=== PATIENT | female | born 1945 | race Caucasian/White ===

== ENCOUNTER → 2023-08-21 08:16 | Outpatient (REF) | payer MEDICARE, OTHER, SELFPAY | LOC: RAD 08:16 | PROVIDERS: ATTENDING PHYSICIAN Physician Assistant; FAMILY PHYSICIAN Student in an Organized Health Care Education/Training Program | DX: E04.1 Nontoxic single thyroid nodule (principal) | CPT/HCPCS: 76536 ==

== ENCOUNTER → 2023-08-28 08:22 | Outpatient (REF) | payer MEDICARE, OTHER, SELFPAY ==
[2023-08-28 10:09] LABS: ALT (SGPT) 15 U/L (0-35); AST (SGOT) 26 U/L (14-36); Albumin 4.6 g/dl (3.5-5.0); Alkaline Phosphatase 72 U/L (38-126); Blood Urea Nitrogen 22 mg/dl (7-17); Calcium 9.4 mg/dl (8.4-10.2); Carbon Dioxide 28 mmol/L (22-30); Chloride 104 mmol/L (98-107); Glucose 94 mg/dl (70-99); Potassium 4.3 mmol/L (3.5-5.1); Sodium 141 mmol/L (135-145); Total Bilirubin 0.5 mg/dl (0.2-1.3); Total Protein 7.7 g/dl (6.3-8.2); eGFR > 60.00
[2023-08-28 10:26] LABS: Free T4 1.24 ng/dl (0.78-2.19); Vitamin D, 25-OH*** 44.9 ng/mL (30-80)
[2023-08-28 10:39] LABS: TSH 3.94 uIU/ml (0.47-4.68)
[2023-08-29 13:21] LABS: Intact PTH 95.9 pg/ml (13.6-85.8)
== END ==
LOC: REG 08:22
PROVIDERS: ATTENDING PHYSICIAN Physician Assistant; FAMILY PHYSICIAN Student in an Organized Health Care Education/Training Program
DX: E21.0 Primary hyperparathyroidism (principal); E55.9 Vitamin D deficiency, unspecified; E03.8 Other specified hypothyroidism
CPT/HCPCS: 36415; 80053; 82306; 83970; 84439; 84443

== ENCOUNTER → 2024-02-08 08:33 | Outpatient (REF) | payer MEDICARE, OTHER, SELFPAY | LOC: WDC 08:33 | PROVIDERS: ATTENDING PHYSICIAN Obstetrics & Gynecology Gynecology; FAMILY PHYSICIAN Student in an Organized Health Care Education/Training Program | DX: Z12.31 Encounter for screening mammogram for malignant neoplasm of breast (principal) | CPT/HCPCS: 77063; 77067 ==

== ENCOUNTER → 2024-05-28 10:06 | Outpatient (REF) | payer MEDICARE, OTHER, SELFPAY ==
[2024-05-28 11:18] LABS: % Basophils 1.1 % (0-2); % Eosinophils 2.5 % (0-6); % Immature Granulocytes 0.3 % (0-0.5); % Lymphocytes 28.6 % (20.5-51.1); % Monocytes 9.2 % (1.7-9.3); % Neutrophils 58.3 % (42.2-75.2); Absolute Basophils 0.1 10^3/uL (0-0.2); Absolute Eosinophils 0.2 10^3/uL (0-0.7); Absolute Lymphocytes 2.1 10^3/uL (1.2-3.4); Absolute Monocytes 0.7 10^3/uL (0.1-0.6); Absolute Neutrophils 4.2 10^3/uL (1.4-6.5); Hematocrit 40.2 % (37.0-47.0); Hemoglobin 13.3 g/dL (12.0-16.0); Mean Corp Hgb Conc. 33.1 g/dL (33.0-37.0); Mean Corpuscular Hgb 30.9 pg (27.0-31.0); Mean Corpuscular Volume 93.3 fL (81.0-99.0); Mean Platelet Volume 9.3 fL (7.4-10.4); Nucleated Red Blood Cells % 0 %; Platelet Count 179 10^3/uL (130-400); Red Blood Cell Count 4.31 10^6/uL (4.20-5.40); Red Cell Dist. Width 12.5 % (11.5-14.5); White Blood Cell Count 7.3 10^3/uL (4.8-10.8)
[2024-05-28 12:26] LABS: ALT (SGPT) 19 U/L (0-35); AST (SGOT) 27 U/L (14-36); Albumin 4.6 g/dl (3.5-5.0); Alkaline Phosphatase 78 U/L (38-126); Blood Urea Nitrogen 22 mg/dl (7-17); Calcium 9.4 mg/dl (8.4-10.2); Carbon Dioxide 29 mmol/L (22-30); Chloride 100 mmol/L (98-107); Glucose 121 mg/dl (70-99); Potassium 4.1 mmol/L (3.5-5.1); Sodium 140 mmol/L (135-145); Total Bilirubin 0.5 mg/dl (0.2-1.3); Total Protein 7.4 g/dl (6.3-8.2); eGFR > 60.00
[2024-05-28 15:54] LABS: Syphilis/T. pallidum Ab Reflex Negative (Negative)
[2024-05-28 16:37] LABS: Free T3 3.78 pg/ml (2.77-5.27); Free T4 1.44 ng/dl (0.78-2.19)
[2024-05-28 16:51] LABS: TSH 2.57 uIU/ml (0.47-4.68)
[2024-05-28 17:10] LABS: Vitamin B12 371 pg/ml (239-931)
[2024-05-29 19:33] LABS: TSH Receptor Antibody 2.44 IU/L (<=1.75)
== END ==
LOC: REG 10:06
PROVIDERS: ATTENDING PHYSICIAN Student in an Organized Health Care Education/Training Program
DX: R41.3 Other amnesia (principal); R63.5 Abnormal weight gain; R68.89 Other general symptoms and signs; L65.9 Nonscarring hair loss, unspecified
CPT/HCPCS: 36415; 80053; 82607; 83520; 84439; 84443; 84481; 85025; 86780

== ENCOUNTER → 2024-06-24 12:55 | Outpatient (REF) | payer MEDICARE, OTHER, SELFPAY | LOC: PAVMRI 12:55 | PROVIDERS: ATTENDING PHYSICIAN Student in an Organized Health Care Education/Training Program | DX: R41.3 Other amnesia (principal); R63.5 Abnormal weight gain; R68.89 Other general symptoms and signs; L65.9 Nonscarring hair loss, unspecified | CPT/HCPCS: 70553; A9575 ==

== ENCOUNTER → 2024-07-16 16:33 | Outpatient (REF) | payer MEDICARE, OTHER, SELFPAY | LOC: MRI 3T 16:33 | PROVIDERS: ATTENDING PHYSICIAN Student in an Organized Health Care Education/Training Program | DX: R93.0 Abnormal findings on diagnostic imaging of skull and head, not elsewhere classified (principal); R90.89 Other abnormal findings on diagnostic imaging of central nervous system | CPT/HCPCS: 70546; 70549; A9585 ==

== ENCOUNTER 2024-08-05 13:00 | Outpatient (RCR) | payer MEDICARE, OTHER, SELFPAY | END 2024-08-05 23:59 | disposition home or self-care (01) | LOC: RPT 13:00 | PROVIDERS: ATTENDING PHYSICIAN Student in an Organized Health Care Education/Training Program | DX: M54.50 Low back pain, unspecified (principal); R26.81 Unsteadiness on feet; R29.6 Repeated falls | CPT/HCPCS: 97110; 97162; 97535 ==

== ENCOUNTER → 2024-08-07 08:06 | Outpatient (REF) | payer MEDICARE, OTHER, SELFPAY ==
[2024-08-07 11:19] LABS: Free T4 1.37 ng/dl (0.78-2.19); Vitamin D, 25-OH*** 57.7 ng/mL (30-80)
[2024-08-07 11:33] LABS: TSH 3.07 uIU/ml (0.47-4.68)
== END ==
LOC: REG 08:06
PROVIDERS: ATTENDING PHYSICIAN Physician Assistant; FAMILY PHYSICIAN Student in an Organized Health Care Education/Training Program
DX: E03.8 Other specified hypothyroidism (principal); E55.9 Vitamin D deficiency, unspecified
CPT/HCPCS: 36415; 82306; 84439; 84443

== ENCOUNTER → 2024-08-12 13:39 | Outpatient (REF) | payer MEDICARE, OTHER, SELFPAY | LOC: RAD 13:39 | PROVIDERS: ATTENDING PHYSICIAN Obstetrics & Gynecology Gynecology; FAMILY PHYSICIAN Student in an Organized Health Care Education/Training Program | DX: S32.000A Wedge compression fracture of unspecified lumbar vertebra, initial encounter for closed fracture (principal); Z85.3 Personal history of malignant neoplasm of breast | CPT/HCPCS: 77080 ==

== ENCOUNTER 2024-08-30 10:52 | Outpatient (RCR) | payer MEDICARE, OTHER, SELFPAY | END 2024-08-30 23:59 | disposition home or self-care (01) | LOC: RPT 10:52 | PROVIDERS: ATTENDING PHYSICIAN Student in an Organized Health Care Education/Training Program | DX: M54.50 Low back pain, unspecified (principal); R26.81 Unsteadiness on feet; R26.89 Other abnormalities of gait and mobility; Z73.6 Limitation of activities due to disability; R29.6 Repeated falls | CPT/HCPCS: 97110 ==

== ENCOUNTER → 2025-02-10 15:21 | Outpatient (REF) | payer MEDICARE, OTHER, SELFPAY | LOC: WDC 15:21 | PROVIDERS: ATTENDING PHYSICIAN Obstetrics & Gynecology Gynecology; FAMILY PHYSICIAN Student in an Organized Health Care Education/Training Program | DX: Z12.31 Encounter for screening mammogram for malignant neoplasm of breast (principal) | CPT/HCPCS: 77063; 77067 ==

== ENCOUNTER → 2025-03-12 09:10 | Outpatient (REF) | payer MEDICARE, OTHER, SELFPAY ==
[2025-03-12 11:09] LABS: ALT (SGPT) 18 U/L (0-35); AST (SGOT) 25 U/L (14-36); Albumin 4.8 g/dl (3.5-5.0); Alkaline Phosphatase 64 U/L (38-126); Blood Urea Nitrogen 20 mg/dl (7-17); Calcium 9.5 mg/dl (8.4-10.2); Carbon Dioxide 27 mmol/L (22-30); Chloride 105 mmol/L (98-107); Glucose 97 mg/dl (70-99); Magnesium 2.1 mg/dl (1.6-2.3); Potassium 4.4 mmol/L (3.5-5.1); Sodium 139 mmol/L (135-145); Total Protein 7.9 g/dl (6.3-8.2); eGFR 57.31
[2025-03-12 11:23] LABS: Vitamin D, 25-OH*** 42.0 ng/mL (30-80)
== END ==
LOC: REG 09:10
PROVIDERS: ATTENDING PHYSICIAN Student in an Organized Health Care Education/Training Program
DX: E21.5 Disorder of parathyroid gland, unspecified (principal); E55.9 Vitamin D deficiency, unspecified; M54.50 Low back pain, unspecified; M81.0 Age-related osteoporosis without current pathological fracture
CPT/HCPCS: 36415; 72040; 72072; 72100; 80053; 82306; 83735; 83970; 84100